=== PATIENT | female | born 1950 | race Caucasian/White ===

== ENCOUNTER 2017-02-12 11:42 | Emergency (ER) | payer BC, OTHER ==
--- NOTE | 2017-02-12 12:10 | EDM.PDOC ---
ED HPI GENERAL MEDICAL PROBLEM - General Chief Complaint: ENT Problem Stated Complaint: NOSEBLEED Time Seen by Provider: 02/12/17 11:47 - History of Present Illness INITIAL COMMENTS - FREE TEXT/NARRATIVE: HISTORY AND PHYSICAL: History of present illness: The patient is a 66-year-old female who follows at [facility] and has a history of hypertension and presents with a nosebleed that started today after she blew her nose. Patient states that something similar to this happen to her 2 years ago and she was supposed to follow up with ENT but never made that appointment. She said that she's had no issues with bleeding from the nose but the episode this morning is very similar to what happened 2 years ago. At that time the patient is not on any antihypertensive medications and her primary at that time put her on HCTZ. She has since been changed to losartan. Patient denies any headache but has had sinus drainage and some congestion for the last week or so. She has no coughing nausea vomiting chest pain or shortness of breath. The patient said she had an episode of the bleeding this morning and held her nose with her fingers and it eventually stopped. She has had 2 repeat episodes of mild bleeding since that time and currently is not bleeding. The patient is not on any blood thinners and says that her blood pressure is not usually elevated but it is in the ER because she feels very stressed to be here. Review of systems: As per history of present illness and below otherwise all systems reviewed and negative. Past medical history: As per history of present illness and as reviewed below otherwise noncontributory. Surgical history: As per history of present illness and as reviewed below otherwise noncontributory. Social history: No reported history of drug or alcohol abuse. Family history: As per history of present illness and as reviewed below otherwise noncontributory. Physical exam: General: Well-developed well-nourished female who is nontoxic and benefits have been reviewed by me. HEENT: Atraumatic, normocephalic, pupils reactive, negative for conjunctival pallor or scleral icterus, mucous membranes moist, throat clear, neck supple, nontender, trachea midline. Nares are inflamed bilaterally but there is no active bleeding noted in the nose or in the posterior oropharynx. There is an area of excoriation noted on the anterior septum of the left nares which is likely the source of the bleeding. Lungs: Clear to auscultation, breath sounds equal bilaterally, chest nontender. Heart: S1S2, regular, negative for clicks, rubs, or JVD. Abdomen: Soft, nondistended, nontender. NABS. Genitourinary: Deferred. Rectal: Deferred. Extremities: Atraumatic, negative for cords or calf pain. Neurovascular unremarkable. Neuro: Awake, alert, oriented. Cranial nerves II through XII unremarkable. Cerebellum unremarkable. Motor and sensory unremarkable throughout. Exam nonfocal. Diagnostics: [] Therapeutics: Vaseline applied to the area of the septum by me without complication I. discussed when I saw with the patient on my exam and offered her a nasal pack but she states that she would prefer not to be packed. As the area of bleeding is very anterior I think that he can be managed conservatively with [place] nasal spray as well as constant moisture and protection. I've advised her not to blow or pick her nose and that she should followup as scheduled with her provider at [facility] for reevaluation of her blood pressure and reevaluation of today's events. I will also give her Dr. Rubio's information if she chooses to pursue ENT followup. Advised on reasons to return to the ED and I gave her a nasal clip for home Impression: Anterior epistaxis left stable Definitive disposition and diagnosis as appropriate pending reevaluation and review of above. - Related Data Allergies Allergy/AdvReac Type Severity Reaction Status Date / Time atorvastatin calcium Allergy Pain Verified 02/12/17 11:45 [From Lipitor] meloxicam Allergy Itching Verified 02/12/17 11:45 pravastatin Allergy Pain Verified 02/12/17 11:45 propoxyphene HCl Allergy Itching Verified 02/12/17 11:45 [From Darvon] Sulfa (Sulfonamide Allergy Itching Verified 02/12/17 11:45 Antibiotics) niaspaner Allergy Cannot Uncoded 02/12/17 11:45 Remember Home Meds: Home Meds Aspirin [Adult Low Dose Aspirin EC] 1 tab PO DAILY 01/09/15 [History] ClonazePAM [KlonoPIN] 1 tab PO ASDIRECTED PRN 01/09/15 [History] Estrogens, Conjugated [Premarin] 1 tab PO DAILY 01/09/15 [History] Rosuvastatin [Crestor] 1 tab PO DAILY 02/13/15 [History] Hydrochlorothiazide 25 mg PO DAILY 04/22/15 [History] Social & Family History - Tobacco Use Smoking Status *Q: Never Smoker Second Hand Smoke Exposure: No - Alcohol Use Days Per Week of Alcohol Use: 0 - Recreational Drug Use Recreational Drug Use: No ED ROS GENERAL - Review of Systems Review Of Systems: ROS reveals no pertinent complaints other than HPI. ED EXAM, GENERAL - Physical Exam Exam: See Below (See dictation) Course - Vital Signs Last Recorded V/S: Last Vital Signs Temp 36.6 C 02/12/17 11:46 Pulse 95 02/12/17 11:46 Resp 16 02/12/17 11:46 BP 191/88 H 02/12/17 11:46 Pulse Ox 99 02/12/17 11:46 Departure - Departure Time of Disposition: 12:11 Disposition: Home, Self-Care 01 Condition: good Clinical Impression: Epistaxis Referrals: PCP,None [Primary Care Provider] - Forms: ED Department Discharge Additional Instructions: The following information is given to patients seen in the emergency department who are being discharged to home. This information is to outline your options for follow-up care. We provide all patients seen in our emergency department with a follow-up referral. The need for follow-up, as well as the timing and circumstances, are variable depending upon the specifics of your emergency department visit. If you don't have a primary care physician on staff, we will provide you with a referral. We always advise you to contact your personal physician following an emergency department visit to inform them of the circumstance of the visit and for follow-up with them and/or the need for any referrals to a consulting specialist. The emergency department will also refer you to a specialist when appropriate. This referral assures that you have the opportunity for followup care with a specialist. All of these measure are taken in an effort to provide you with optimal care, which includes your followup. Under all circumstances we always encourage you to contact your private physician who remains a resource for coordinating your care. When calling for followup care, please make the office aware that this follow-up is from your recent emergency room visit. If for any reason you are refused follow-up, please contact the [facility] emergency department at and ask to speak to the emergency department charge nurse. [facility] [address] [place], [place] [address]. [place] [address] [facility] Specialty [facility] - ENT [id number], [place] [address] Please avoid blowing or picking the nose or any manipulation of the nose the next several days. Use [place] nasal spray as well as apply Vaseline to the nose as I showed you in the ER. Please return to ER as needed as discussed and please followup with provider as we discussed. Apply nose clip as needed and as shown
[2017-02-12 12:20] VITALS: BP 162/90
== END 2017-02-12 12:19 | disposition home or self-care (01) ==
LOC: MW.ED 11:42
DX: R04.0 Epistaxis (principal); Z88.2 Allergy status to sulfonamides; Z88.8 Allergy status to other drugs, medicaments and biological substances; Z79.82 Long term (current) use of aspirin; Z79.899 Other long term (current) drug therapy
CPT/HCPCS: 99282; 99283

== ENCOUNTER 2025-11-04 01:05 | Emergency (ER) | payer MEDICARE ==
[2025-11-04] MEDS: Amoxicillin/Clavulanate K 875-125 MG Tab PO ONE (01:26)
[2025-11-04 02:04] VITALS: BP 130/76; PULSE 75
== END 2025-11-04 02:03 | disposition home or self-care (01) ==
LOC: MW.ED 01:05
DX: H66.011 Acute suppurative otitis media with spontaneous rupture of ear drum, right ear (principal); I10 Essential (primary) hypertension; Z79.899 Other long term (current) drug therapy; Z90.710 Acquired absence of both cervix and uterus; Z88.8 Allergy status to other drugs, medicaments and biological substances; Z88.2 Allergy status to sulfonamides
CPT/HCPCS: 99282; A9270; 99283